=== PATIENT | female | born 1980 | race Hispanic/Latino ===

== ENCOUNTER → 2022-10-30 | Outpatient (CLI) | payer MEDICAID ==
[2022-10-30 11:21] LABS: CREATININE 1.3 mg/dL (0.5-1.5)
== END | disposition home or self-care (01) ==
LOC: LAB 10:13
PROVIDERS: ATTEND Thoracic Surgery (Cardiothoracic Vascular Surgery)
DX: I35.0 Nonrheumatic aortic (valve) stenosis (principal)
CPT/HCPCS: 36415; 82565; 84520

== ENCOUNTER → 2022-11-02 | Outpatient (CLI) | payer MEDICAID ==
[~2022-11-02] MED LIST: IOHEXOL 350 MG/ML 100ML INFUS..BTL IV ONE
== END | disposition home or self-care (01) ==
LOC: RAH 07:58 → EDUNIT# 08:00
PROVIDERS: ATTEND Thoracic Surgery (Cardiothoracic Vascular Surgery)
DX: I35.0 Nonrheumatic aortic (valve) stenosis (principal); M47.815 Spondylosis without myelopathy or radiculopathy, thoracolumbar region
CPT/HCPCS: 74174; 75574; Q9967